=== PATIENT | male | born 1960 | race Caucasian/White ===

== ENCOUNTER 2024-03-29 02:39 | Outpatient (CLI) | payer BC, SELFPAY ==
[2024-03-29] MEDS: Inhaler, Assist Device 1 EACH MC (15:04)
[2024-03-29] MEDS: Levalbuterol HFA 15 GM INH 4 PUFF IH (15:04)
--- NOTE | 2024-04-08 11:49 | W.PFT ---
Date of service: 03/29/24 Time of Service: 13:04 Pulmonary Function Test Result Indications: Emphysema Interpretation Spirometry: There is very severe airflow limitation. There is a significant bronchodilator response. Lung Volumes: There is air trapping Diffusion Capacity: Reduced diffusion Airway Pressure: Increased airways resistance Impression Very severe airflow obstruction with air trapping and a reduced diffusion. Clinical Correlation therefore is recommended.
== END 2024-03-29 02:40 | disposition home or self-care (01) ==
LOC: RT 02:39
PROVIDERS: PCP Family Medicine; Visit Provider Student in an Organized Health Care Education/Training Program
DX: J43.2 Centrilobular emphysema (principal)
CPT/HCPCS: 94060; 94726; 94729